=== PATIENT | female | born 1985 | race Hispanic/Latino ===

== ENCOUNTER 2020-01-05 08:25 | Inpatient (IN) | payer BC, OTHER ==
[2020-01-05 09:04] VITALS: BMI 26.6
[2020-01-05] MEDS ORDERED: Bupivacaine 0.25% HCL 30 ML VIAL ONE (09:35)
[2020-01-05] MEDS ORDERED: Docusate 100 MG CAP PO PRN (09:36)
[2020-01-05] MEDS ORDERED: Acetaminophen/Codeine 30-300mg Tablet PO PRN ×4 (09:36→13:50)
[2020-01-05] MEDS ORDERED: hydrALAZINE 20 MG/ML VIAL SLOW IVP PRN ×2 (09:36→13:50)
[2020-01-05] MEDS ORDERED: Lidocaine 1% (PF) 30 ML VIAL SC PRN (09:36)
[2020-01-05] MEDS ORDERED: Butorphanol Tartrate 1 MG/ML VIAL SLOW IVP PRN (09:36)
[2020-01-05] MEDS ORDERED: Ibuprofen 800 MG TAB PO PRN (09:36)
[2020-01-05] MEDS ORDERED: Ondansetron PF 4 MG/2 ML Vial IVP PRN ×3 (09:36→13:50)
[2020-01-05] MEDS ORDERED: Acetaminophen 500 MG TAB PO PRN (09:36)
[2020-01-05] MEDS ORDERED: Promethazine HCl 25 MG/ML VIAL IM PRN ×2 (09:36→11:06)
[2020-01-05] MEDS ORDERED: NS / Oxytocin 40 units/1000ml 1,000 ML IV PRN (09:36)
[2020-01-05] MEDS ORDERED: Fentanyl 4 mcg/Bup 0.1% Cadd 100 ML ONE (10:26)
[2020-01-05 10:30] LABS: Hemoglobin 13.8 g/dL (12.0-16.0); Mean Corpuscular HGB CONC 33.4 g/dL (32.0-36.0); Mean Corpuscular Hemoglobin 27.9 pg (27.0-31.0); Mean Corpuscular Volume 83.5 fL (78.0-98.0); Mean Platelet Volume 9.3 fL (7.4-10.4); Platelet Count 204 thou/uL (130-400); RBC Distribution Width 16.1 % (11.5-14.5); Red Blood Cell (RBC) Count 4.95 mill/uL (4.20-5.40); White Blood Cell (WBC) Count 11.9 thou/uL (4.8-10.8)
[2020-01-05] MEDS ORDERED: Naloxone HCl 0.4 mg/ml Vial IVP PRN ×2 (11:06)
[2020-01-05] MEDS ORDERED: diphenhydrAMINE 50 MG/ML VIAL IVP PRN (11:06)
[2020-01-05] MEDS ORDERED: Acetaminophen 325 MG TAB PO PRN (11:06)
[2020-01-05] MEDS ORDERED: EPHEDRINE 25 MG/5 ML SYRINGE SLOW IVP PRN (11:06)
[2020-01-05] MEDS ORDERED: Lactated Ringer's 500 ML IV PRN (11:06)
[2020-01-05] MEDS ORDERED: Fentanyl 4 mcg/Bupivacaine 0.1% Cassette 100 ML EPIDURAL SCH (11:15)
[2020-01-05] MEDS ORDERED: Communication Order-Pharmacy FS SCH (11:15)
[2020-01-05 11:17] LABS: HBSAg Index 0.16 S/CO (0-0.99); Hep B Surf Ag Non-Reactive S/CO (NonReactive); Syphilis Antibody Nonreactive (Nonreactive); Syphilis Antibody Index 0.02 S/CO (<1.00 Non-Reactive)
[2020-01-05] MEDS ORDERED: Benzocaine-Menthol 82.5 ML CAN TOP PRN (13:50)
[2020-01-05] MEDS ORDERED: Adacel (T-DAP) 0.5 ML SYRINGE IM ONE (13:50)
[2020-01-05] MEDS ORDERED: diphenhydrAMINE 25 MG CAP PO PRN (13:50)
[2020-01-05] MEDS ORDERED: Lanolin Ointment 7 GM TUBE TOP PRN (13:50)
[2020-01-05] MEDS ORDERED: Misoprostol 200 MCG TAB VAG PRN (13:50)
[2020-01-05] MEDS ORDERED: Zolpidem Tartrate 5 MG TAB PO PRN (13:50)
[2020-01-05] MEDS ORDERED: Bisacodyl 10 MG SUPP PR PRN (13:50)
[2020-01-05] MEDS ORDERED: Preparation H Ointment 28 GM TUBE PR PRN (13:50)
[2020-01-05] MEDS ORDERED: Milk Of Magnesia 30 ML UDCUP PO PRN (13:50)
[2020-01-05] MEDS: NS / Oxytocin 40 units/1000ml 1,000 ML IV SCH ×2 (15:01→16:23)
[2020-01-05] MEDS: Ibuprofen 800 MG TAB PO SCH ×3 (21:05→21:12)
[2020-01-05] MEDS: Docusate Calcium (SURFAK) 240 MG CAP PO SCH (21:12)
[2020-01-06] MEDS: Ferrous Sulfate 325 MG TAB PO SCH ×3 (00:20→16:27)
[2020-01-06] MEDS ORDERED: Non-Formulary Item 1 EACH (Prenatal Vit No.129/Iron/Folic [Prenatal One Daily Tablet] 1 E PO SCH (09:00)
[2020-01-06] MEDS ORDERED: Ferrous Sulfate 325 MG TAB PO SCH (09:00)
[2020-01-06] MEDS ORDERED: Prenatal Vitamin 1 TAB PO SCH (09:00)
[2020-01-06] MEDS ORDERED: Non-Formulary Item 1 EACH (Ferrous Sulfate [Ferrous Sulfate] 325 MG) PO SCH (09:00)
[2020-01-06] MEDS: Ibuprofen 800 MG TAB PO SCH ×3 (09:15→22:25)
[2020-01-06] MEDS: Docusate Calcium (SURFAK) 240 MG CAP PO SCH ×2 (09:17→22:25)
[2020-01-06] MEDS: Prenatal Vitamin 1 TAB PO SCH (09:17)
[2020-01-07] MEDS: Ibuprofen 800 MG TAB PO SCH ×2 (05:18→16:38)
[2020-01-07] MEDS: Prenatal Vitamin 1 TAB PO SCH (10:03)
[2020-01-07] MEDS: Ferrous Sulfate 325 MG TAB PO SCH (10:03)
[2020-01-07] MEDS: Docusate Calcium (SURFAK) 240 MG CAP PO SCH (10:03)
[2020-01-07 11:52] VITALS: BP 132/83; TEMP 97.8
== END 2020-01-07 16:25 | disposition home or self-care (01) | DRG 807 ==
LOC: L&D/OP 08:25 → L&D 11:30 → 3SW 18:45
PROVIDERS: ADMIT Obstetrics & Gynecology; ATTEND Obstetrics & Gynecology
PROC: 10E0XZZ Delivery of Products of Conception, External Approach (ICD-10-PCS; principal; 2020-01-05)
DX: O80 Encounter for full-term uncomplicated delivery (principal); Z37.0 Single live birth; Z3A.39 39 weeks gestation of pregnancy; Z90.49 Acquired absence of other specified parts of digestive tract
CPT/HCPCS: 36415; 51702; 85027; 86780; 86850; 86900; 86901; 87340; 99285; S0020

== ENCOUNTER 2021-08-06 09:00 | Outpatient (CLI) | payer OTHER ==
[2021-08-06 10:00] LABS: Hemoglobin 13.4 g/dL (12.0-15.5); Mean Corpuscular HGB CONC 32.4 g/dL (32.0-36.0); Mean Corpuscular Hemoglobin 28.3 pg (27.0-33.0); Mean Corpuscular Volume 87.1 fl (81.6-98.3); Mean Platelet Volume 10.5 fl (7.4-10.4); Platelet Count 305 10x3/uL (150-450); Red Blood Cell (RBC) Count 4.74 10x6/uL (3.90-5.03); White Blood Cell (WBC) Count 7.3 10x3/uL (3.5-10.5)
[2021-08-06 10:21] LABS: INR-International Normal Ratio 0.9; PTT 26.5 sec (22.0-33.0); Prothrombin Time 10.3 sec (9.5-12.1)
[2021-08-06 10:23] LABS: Anion Gap 13 mmol/L (10-20); BUN (Urea Nitrogen) 12 mg/dL (7.0-18.7); Calc. Creatinine Clearance 0 mL/min (70-130); Calcium 8.8 mg/dL (7.8-10.44); Carbon Dioxide 24 mmol/L (22-29); Chloride 109 mmol/L (98-107); Glucose 99 mg/dL (70-105); Potassium 3.9 mmol/L (3.5-5.1); Sodium 142 mmol/L (136-145)
[2021-08-06 18:10] LABS: SARS-CoV-2 PCR by NAA Not Detected (NotDetected)
== END 2021-08-06 09:01 | disposition home or self-care (01) ==
LOC: LABBT 09:00
PROVIDERS: ATTEND Urology
DX: Z01.812 Encounter for preprocedural laboratory examination (principal); Z20.822 Contact with and (suspected) exposure to COVID-19
CPT/HCPCS: 80048; 85027; 85610; 85730; U0003; U0005

== ENCOUNTER 2021-08-09 09:13 | Outpatient (CLI) | payer OTHER ==
[2021-08-09 20:42] LABS: SARS-CoV-2 PCR by NAA Not Detected (NotDetected)
== END 2021-08-09 09:14 | disposition home or self-care (01) ==
LOC: LABBT 09:13
PROVIDERS: ATTEND Urology
DX: Z01.812 Encounter for preprocedural laboratory examination (principal); N20.1 Calculus of ureter; Z20.822 Contact with and (suspected) exposure to COVID-19
CPT/HCPCS: U0003; U0005

== ENCOUNTER 2021-08-14 08:11 | Day surgery (SDC) | payer OTHER ==
[2021-07-31 11:32] VITALS: BMI 24.8
[2021-08-14] MEDS ORDERED: Lidocaine 1% MPF 2 ML VIAL ONE (08:51)
[2021-08-14] MEDS ORDERED: Midazolam HCl 2 mg/2 ml Vial ONE (10:21)
[2021-08-14] MEDS ORDERED: Fentanyl 100 MCG/2 ML VIAL ONE (11:57)
[2021-08-14] MEDS ORDERED: cefTRIAXone\\ROCEPHIN 2 GM VIAL ONE (12:13)
[2021-08-14] MEDS ORDERED: Sodium Chloride 0.9% 100 ML ONE (12:13)
[2021-08-14] MEDS ORDERED: Dexamethasone 20 MG/5 ML VIAL ONE (12:26)
[2021-08-14] MEDS ORDERED: Ketorolac Tromethamine 30 MG/ML VIAL ONE (12:26)
[2021-08-14] MEDS ORDERED: Glycopyrrolate 0.2 MG/ML 5 ML SYRINGE ONE (12:26)
[2021-08-14] MEDS ORDERED: Rocuronium Bromide 10 MG/ML (10ML VIAL) ONE (12:26)
[2021-08-14] MEDS ORDERED: Lidocaine 1% PF 5 ML VIAL ONE (12:26)
[2021-08-14] MEDS ORDERED: Ondansetron PF 4 MG/2 ML Vial ONE (12:26)
[2021-08-14] MEDS ORDERED: PROPOFOL 200 MG/20 ML VIAL ONE (12:26)
[2021-08-14] MEDS ORDERED: Iothalamate Meglumine 60% 50 ML VIAL FS ONE (14:12)
[2021-08-14] MEDS ORDERED: Oxybutynin 5 MG TAB ONE (14:37)
[2021-08-14] MEDS ORDERED: Phenazopyridine HCl 100 MG TAB ONE (14:37)
== END 2021-08-14 17:05 | disposition home or self-care (01) ==
LOC: SDC 08:11
PROVIDERS: ATTEND Urology
PROC: 0TC38ZZ Extirpation of Matter from Right Kidney Pelvis, Via Natural or Artificial Opening Endoscopic (ICD-10-PCS; principal; 2021-08-14)
PROC: 0T768DZ Dilation of Right Ureter with Intraluminal Device, Via Natural or Artificial Opening Endoscopic (ICD-10-PCS; principal; 2021-08-14)
PROC: 0TC68ZZ Extirpation of Matter from Right Ureter, Via Natural or Artificial Opening Endoscopic (ICD-10-PCS; principal; 2021-08-14)
DX: N13.6 Pyonephrosis (principal); B96.1 Klebsiella pneumoniae [K. pneumoniae] as the cause of diseases classified elsewhere; Z79.2 Long term (current) use of antibiotics; Z79.899 Other long term (current) drug therapy
CPT/HCPCS: 74018; 74420; 82365; 88300; C2617; J0696; J2250; J3010; J3490; Q9961-U8

== ENCOUNTER 2021-08-28 13:58 | Outpatient (CLI) | payer OTHER | END 2021-08-28 13:59 | disposition home or self-care (01) | LOC: RAD 13:58 | PROVIDERS: ATTEND Urology | DX: N20.2 Calculus of kidney with calculus of ureter (principal); Z96.0 Presence of urogenital implants | CPT/HCPCS: 74018 ==

== ENCOUNTER 2021-09-30 14:36 | Outpatient (CLI) | payer OTHER | END 2021-09-30 14:37 | disposition home or self-care (01) | LOC: BICULT 14:36 | PROVIDERS: ATTEND Urology | DX: N20.0 Calculus of kidney (principal) | CPT/HCPCS: 76770 ==